=== PATIENT | male | born 1965 | race Caucasian/White ===

== ENCOUNTER → 2024-09-24 | Outpatient (CLI) | payer BC, SELFPAY ==
[2024-09-27 11:08] LABS: QNTFERON TB Mitogen Value > 10.00 IU/mL (.); QNTFERON TB Nil Value 0.01 IU/mL (.); QNTFERON TB1+ Ag Value 0.01 IU/mL (.); QNTFERON TB2+ Ag Value 0.01 IU/mL (.); QNTIFERON TB Positive Criteria Negative (Negative)
== END | disposition home or self-care (01) ==
PROVIDERS: Referring Provider Dermatology Pediatric Dermatology; Visit Provider Dermatology Pediatric Dermatology
DX: L40.0 Psoriasis vulgaris (principal); L40.59 Other psoriatic arthropathy; Z79.899 Other long term (current) drug therapy
CPT/HCPCS: 36415; 86480